=== PATIENT | female | born 1935 | race Caucasian/White ===

== ENCOUNTER 2022-07-12 23:25 | Emergency (ER) | payer MEDICARE ==
[~2022-07-12] VITALS: Ht 167.6 cm; Wt 61.2 kg
--- NOTE | 2022-07-12 23:34 | NUR ---
NICOLA FROM HOME ON A HOLD FOR GD "PUSHED LPS OUT OF THE DOOR"; NEIGHBORS CALLED 911 FOR PT. PT A/OX1. TOLERATING R/A WELL WITH NO RESP DISTRESS. SAFETY MEASURES IN PLACE.
[2022-07-12] MEDS ORDERED: OLANZAPINE 10 MG VIAL IM ONE (23:42)
[2022-07-12] MEDS ORDERED: LORAZEPAM INJ 2 MG/ML VIAL ONE (23:43)
--- NOTE | 2022-07-12 23:52 | NUR ---
COVID ANTIGEN SWAB COLLECTED AND SENT TO LAB
[2022-07-13] MEDS ORDERED: OLANZAPINE 10 MG VIAL IM ONE
[2022-07-13] MEDS ORDERED: LORAZEPAM INJ 2 MG/ML VIAL IM PRN
--- NOTE | 2022-07-13 00:10 | NUR ---
DAUGHTER: RODOLFO THAO [phone]
[2022-07-13 00:15] LABS: BASOPHILS % (AUTO) 0.8 % (0.0-2.0); EOSINOPHILS % (AUTO) 1.4 % (0.0-6.0); HEMATOCRIT 41 % (33-45); HEMOGLOBIN 13.4 g/dL (11.5-14.8); LYMPHOCYTES # (AUTO) 1.3 K/uL (0.8-4.8); LYMPHOCYTES % (AUTO) 21.8 % (20.0-44.0); MEAN CORPUSCULAR HGB CONC 33 g/dl (31.0-36.0); MEAN CORPUSCULAR VOLUME 93 fL (82-100); MONOCYTES # (AUTO) 0.6 K/uL (0.1-1.30); MONOCYTES % (AUTO) 9.5 % (2.0-12.0); NEUTROPHILS # (AUTO) 3.9 K/uL (1.8-8.9); NEUTROPHILS % (AUTO) 66.5 % (43.0-81.0); PLATELET COUNT (AUTO) 234 K/uL (150-450); RED BLOOD CELL COUNT(AUTO) 4.41 MIL/uL (4.0-5.2); WHITE BLOOD COUNT (AUTO) 5.8 K/uL (4.3-11.0)
[2022-07-13 00:39] LABS: ALANINE AMINOTRANSFERASE 282 U/L (12-78); ALBUMIN 3.8 g/dL (3.4-5.0); ALCOHOL, BLOOD < 3 mg/dL (0-0); ALKALINE PHOSPHATASE 91 U/L (46-116); ASPARTATE AMINOTRANSFERASE 320 U/L (15-37); BILIRUBIN,DIRECT 0.2 mg/dL (0.0-0.2); BILIRUBIN,TOTAL 1.3 mg/dL (0.2-1.0); CARBON DIOXIDE 22 mmol/L (21-32); CHLORIDE 105 mmol/L (98-107); CREATININE 0.8 mg/dL (0.6-1.3); GLUCOSE 128 mg/dL (74-106); POTASSIUM 3.7 mmol/L (3.5-5.1); SODIUM SERUM 140 mmol/L (136-145); TOTAL PROTEIN, SERUM 6.9 g/dL (6.4-8.2); UREA NITROGEN, BLOOD 16 mg/dL (7-18)
[2022-07-13 00:40] LABS: ACETAMINOPHEN < 10 ug/ml (10-30)
--- NOTE | 2022-07-13 01:07 | NUR ---
URINE COLLECTED AND SENT TO LAB
[2022-07-13 01:48] LABS: BILIRUBIN,URINE NEGATIVE (NEGATIVE); COLOR,URINE YELLOW (YELLOW); LEUKOCYTE ESTERASE ,URINE NEGATIVE (NEGATIVE); NITRITE, URINE NEGATIVE (NEGATIVE); PROTEIN,URINE TRACE mg/dl (NEGATIVE); UGLUCOSE NEGATIVE (NEGATIVE); UROBILINOGEN,URINE 0.2 EU/dL (0.2)
[2022-07-13 01:50] LABS: BACTERIA,URINE None seen /HPF (None Seen); RBC,URINE 0-2 /HPF (0-2); SQUAMOUS EPITHELIAL CELL,UR Rare /HPF (None Seen); WBC,URINE 0-2 /HPF (0-3)
--- NOTE | 2022-07-13 07:20 | NUR ---
RECEIVED PT FROM DANIELE DUNN PT awake confused and resslessON [id number] FOR [place] disabled adult 07/12/22 at 7.25 pm
--- NOTE | 2022-07-13 08:08 | NUR ---
[facility] CALLED FOR TRANSPORT ETA 0930 PER CHIKIS.
--- NOTE | 2022-07-13 08:18 | NUR ---
ATTEMPTED TO GIVE REPORT TO [facility], NO ANSWER. 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
--- NOTE | 2022-07-13 09:50 | NUR ---
[facility] CALLED FOR TRANSPORT NEW ETA 15 MINS PER JENNIFER.
--- NOTE | 2022-07-13 10:00 | NUR ---
[facility]
--- NOTE | 2022-07-13 10:34 | NUR ---
plan to transfer TO [facility] AWAKE CONFUSED
[2022-07-13 10:38] VITALS: BP 156/94
--- NOTE | 2022-07-13 11:15 | NUR ---
HAND OFF JACY DUNN IN [facility]
== END 2022-07-13 10:43 ==
LOC: EDBD 23:32 → ER 23:32
DX: F03.911 Unspecified dementia, unspecified severity, with agitation (principal)
CPT/HCPCS: 99285; 96372 ×2; 36415; 80307; 85025; 80048; 80076; 81001; 87081; 87426; 80143; 80320; J2060; J3490; C9803; G0480